=== PATIENT | female | born 1970 | race Caucasian/White ===

== ENCOUNTER 2020-03-01 09:09 | Outpatient (CLI) | payer BC, SELFPAY ==
--- NOTE | 2020-03-01 09:17 | MM_ITS ---
WS: [id number] BILATERAL SCREENING DIGITAL MAMMOGRAM WITH CAD HISTORY: SCREENING COMPARISON: 10/20/2017 and 05/26/2016 Bilateral CC and MLO views submitted. Computer aided detection analyzed. Breast composition: The breasts are heterogeneously dense, which may obscure small masses. No suspici ous masses, microcalcifications or architectural distortion. MM/[place] [id number] IMPRESSION: BI-RADS: 1-Negative FOLLOW UP: 1 Year Follow-up
== END 2020-03-01 09:10 | disposition home or self-care (01) ==
LOC: RADSHAW 09:14
PROVIDERS: Visit Provider Nurse Practitioner Women's Health
DX: Z12.31 Encounter for screening mammogram for malignant neoplasm of breast (principal)
CPT/HCPCS: 77067

== ENCOUNTER → 2021-09-17 14:49 | Outpatient (BNVA) | payer OTHER, SELFPAY | PROVIDERS: Visit Provider Nurse Practitioner Women's Health | DX: Z01.419 Encounter for gynecological examination (general) (routine) without abnormal findings (principal); Z12.39 Encounter for other screening for malignant neoplasm of breast; Z12.11 Encounter for screening for malignant neoplasm of colon; N95.1 Menopausal and female climacteric states | CPT/HCPCS: 87624 ==

== ENCOUNTER → 2022-01-02 08:33 | Outpatient (BNVA) | payer OTHER, SELFPAY | PROVIDERS: Visit Provider Family Medicine | DX: Z13.6 Encounter for screening for cardiovascular disorders (principal) | CPT/HCPCS: 80053; 80061; 85025 ==

== ENCOUNTER 2022-04-24 14:08 | Outpatient (CLI) | payer OTHER, SELFPAY ==
--- NOTE | 2022-04-24 14:20 | MM_ITS ---
WS: [id number] BILATERAL 3D TOMOSYNTHESIS DIGITAL SCREENING MAMMOGRAPHY WITH CAD CLINICAL INFORMATION: screening mammogram HISTORY: Screening mammogram. No current complaints. COMPARISON: March 01, 2020 TECHNIQUE: Bilateral CC and MLO views. FINDINGS: The breasts are composed of heterogeneous fibroglandular density tissue, which can limit the detectio n of small underlying mass lesions. No suspicious mass, asymmetry, calcifications, or architectural d istortion. No evidence of malignancy. Stable intramammary lymph node upper outer RIGHT breast. MM/[place] [id number] IMPRESSION: BI-RADS: 2-Benign FOLLOW UP: 1 Year Follow-up Recommend return to annual screening mammography.
--- NOTE | 2022-04-24 14:40 | XR_ITS ---
WS: [id number] XR cervical spine 3V* [id number] REASON FOR EXAM: radicular pain FINDINGS: Relatively normal cervical spine curvature is. Normal odontoid. No focal vertebral body lesion or significant compression. Mild narrowing of the intervertebral disc space at C5-C6 and C6-C7. Mild anterior osteophytosis with moderate uncinate osteophytosis C5-C7. Mild degenerative changes in the facet joints C5-C6 and C6-C7. XR/XR cervical spine 3V* [id number] IMPRESSION: Degenerative spondylosis of the cervical spine as above.
== END 2022-04-24 14:09 | disposition home or self-care (01) ==
PROVIDERS: PCP Family Medicine; Visit Provider Family Medicine
DX: Z12.31 Encounter for screening mammogram for malignant neoplasm of breast (principal); M54.12 Radiculopathy, cervical region; M47.812 Spondylosis without myelopathy or radiculopathy, cervical region
CPT/HCPCS: 72040; 77063; 77067

== ENCOUNTER 2022-06-02 09:01 | Outpatient (RCR) | payer OTHER, SELFPAY | END 2022-06-23 23:59 | disposition home or self-care (01) | LOC: SPT 09:01 | PROVIDERS: PCP Family Medicine; Visit Provider Family Medicine | DX: M54.12 Radiculopathy, cervical region (principal) | CPT/HCPCS: 97110; 97161 ==

== ENCOUNTER 2022-06-24 06:00 | Outpatient (RCR) | payer OTHER, SELFPAY | END 2022-07-21 23:59 | disposition home or self-care (01) | LOC: SPT 06:00 | PROVIDERS: PCP Family Medicine; Visit Provider Family Medicine | DX: M54.12 Radiculopathy, cervical region (principal) | CPT/HCPCS: 97110 ==

== ENCOUNTER 2022-07-22 06:00 | Outpatient (RCR) | payer OTHER, SELFPAY | END 2022-08-21 23:59 | disposition home or self-care (01) | LOC: SPT 06:00 | PROVIDERS: PCP Family Medicine; Visit Provider Family Medicine | DX: M54.12 Radiculopathy, cervical region (principal) | CPT/HCPCS: 97110 ==

== ENCOUNTER 2022-11-16 09:49 | Outpatient (CLI) | payer OTHER, SELFPAY ==
--- NOTE | 2022-11-16 10:07 | USCV_ITS ---
Jing Worrell Age: 52 Gender: F : 1970 Exam Date: 11/16/2022 10:33 Ordering Phys: Deyanira Freitas APN Technologist: NALINI [place] [facility] [place] Lt calf pain HISTORY: Lower extremity pain. PROCEDURES: Venous duplex imaging was performed in only the left lower extremity. The following venous structures were evaluated: common femoral vein, profunda vein, proximal portion of the greater saphenous vein, superficial femoral vein, and the popliteal vein. In addition, the posterior tibial and peroneal trunk were evaluated. Serial compression, augmentation maneuvers, and spectral Doppler flow evaluation were performed. FINDINGS: Normal 2-D Doppler and augmentation and compressibility throughout the lower extremity venous structures. Additional imaging through the proximal calf veins also reveals no thrombus. Limited evaluation of the greater saphenous vein is patent with no thrombus. CONCLUSIONS No DVT left lower extremity. Dr. Chelsie Vieira DO (Electronically Signed) Final Date: 16 November 2022 10:50 S
== END 2022-11-16 09:50 | disposition home or self-care (01) ==
LOC: RAD 09:51
PROVIDERS: PCP Family Medicine; Visit Provider Nurse Practitioner Women's Health
DX: M79.18 Myalgia, other site (principal)
CPT/HCPCS: 93971

== ENCOUNTER 2023-02-24 08:35 | Outpatient (RCR) | payer OTHER, SELFPAY | END 2023-03-23 23:59 | disposition home or self-care (01) | LOC: SPT 08:35 | PROVIDERS: PCP Family Medicine; Visit Provider Family Medicine | DX: M54.2 Cervicalgia (principal) | CPT/HCPCS: 97110; 97161 ==

== ENCOUNTER 2023-03-24 06:00 | Outpatient (RCR) | payer OTHER, SELFPAY | END 2023-04-22 23:59 | disposition home or self-care (01) | LOC: SPT 06:00 | PROVIDERS: PCP Family Medicine; Visit Provider Family Medicine | DX: M54.2 Cervicalgia (principal) | CPT/HCPCS: 97110 ==

== ENCOUNTER 2023-08-12 09:20 | Outpatient (CLI) | payer OTHER, SELFPAY ==
--- NOTE | 2023-08-12 09:25 | MM_ITS ---
WS: [id number] Bilateral screening 3D tomosynthesis digital mammogram, 08/12/2023 Clinical Data: Z12.39 - Encounter for other screening for malignant neop... Comparison: 04/24/2022, 03/01/2020, 10/20/2017, 05/26/2016. Findings: The breast parenchymal pattern shows heterogeneous density. No spiculated masses or clustered calcifi cations are seen. There are no secondary signs of carcinoma. Impression: 1. Negative bilateral mammogram unchanged. 2. Recommend annual screening mammograms. MM/[place] [id number] BIRADS: 1-Negative FOLLOW UP: 1 Year Follow-up The CAD brick paving checker was used.
== END 2023-08-12 09:21 | disposition home or self-care (01) ==
LOC: RAD 09:20
PROVIDERS: PCP Family Medicine; Visit Provider Nurse Practitioner Women's Health
DX: Z12.31 Encounter for screening mammogram for malignant neoplasm of breast (principal)
CPT/HCPCS: 77063; 77067

== ENCOUNTER → 2023-11-09 09:03 | Outpatient (BNVA) | payer OTHER, SELFPAY | PROVIDERS: PCP Family Medicine; Visit Provider Nurse Practitioner Women's Health | DX: D25.9 Leiomyoma of uterus, unspecified (principal); N83.291 Other ovarian cyst, right side | CPT/HCPCS: 76830 ==

== ENCOUNTER → 2024-05-04 09:39 | Outpatient (BNVA) | payer OTHER, SELFPAY | PROVIDERS: PCP Family Medicine; Visit Provider Nurse Practitioner Women's Health | DX: D25.9 Leiomyoma of uterus, unspecified (principal) | CPT/HCPCS: 76830 ==

== ENCOUNTER → 2025-03-16 10:47 | Outpatient (BNVA) | payer OTHER, SELFPAY | PROVIDERS: PCP Family Medicine; Visit Provider Nurse Practitioner Women's Health | DX: R53.83 Other fatigue (principal); N95.1 Menopausal and female climacteric states; Z12.4 Encounter for screening for malignant neoplasm of cervix | CPT/HCPCS: 82306; 82670; 87624 ==

== ENCOUNTER 2025-03-26 09:37 | Outpatient (CLI) | payer OTHER, SELFPAY ==
--- NOTE | 2025-03-26 09:40 | MM_ITS ---
WS: [id number] BILATERAL SCREENING DIGITAL TOMOSYNTHESIS MAMMOGRAM WITH CAD HISTORY: Z12.31 - Encounter for screening mammogram for malignant ... COMPARISON: 08/12/2023, 04/24/2022, 03/01/2020 Bilateral CC and MLO views with tomosynthesis and synthetic mammography submitted. Computer aided detection analyzed. Breast composition: There are scattered areas of fibroglandular density. No suspicious masses, microcalcifications or architectural distortion. MM/MM scr tomosynthesis [id number] IMPRESSION: BI-RADS: 1 - Negative. FOLLOW UP: 1 Year Follow-up
== END 2025-03-26 09:38 | disposition home or self-care (01) ==
LOC: RAD 09:41
PROVIDERS: PCP Family Medicine; Visit Provider Nurse Practitioner Women's Health
DX: Z12.31 Encounter for screening mammogram for malignant neoplasm of breast (principal); R92.323 Mammographic fibroglandular density, bilateral breasts
CPT/HCPCS: 77063; 77067

== ENCOUNTER → 2025-03-27 10:26 | Outpatient (BNVA) | payer OTHER, SELFPAY | PROVIDERS: PCP Family Medicine; Visit Provider Nurse Practitioner Women's Health | DX: N83.292 Other ovarian cyst, left side (principal); N85.4 Malposition of uterus; D25.9 Leiomyoma of uterus, unspecified | CPT/HCPCS: 76830; 76856 ==